=== PATIENT | male | born 1990 | race Caucasian/White ===

== ENCOUNTER 2023-02-06 12:31 | Emergency (ER) | payer SELFPAY ==
[~2023-02-06] VITALS: Ht 177.8 cm; Wt 90.7 kg
[2023-02-06 13:09] VITALS: BP 124/75
--- NOTE | 2023-02-06 13:35 | NUR ---
Patient discharged with v/s stable. Written and verbal after care instructions given and explained. Patient verbalized understanding. Police with steady gait. All questions addressed prior to discharge. Advised to follow up with PMD. PT. STABLE FOR D/C NO ACUTE DISTRESS. AWAKE AND ORIENTED. NO ACUTE DISTRESS. PT. D/C IN POLICE CUSTODY
== END 2023-02-06 13:40 ==
LOC: MED 12:31
DX: F19.129 Other psychoactive substance abuse with intoxication, unspecified (principal)
CPT/HCPCS: 99283